=== PATIENT | male | born 1945 | race Native Hawaiian/Other Pacific Islander ===

== ENCOUNTER 2020-06-27 08:51 | Outpatient (CLI) | payer OTHER, MEDICARE ==
[~2020-06-27] VITALS: Ht 167.6 cm; Wt 103.9 kg
[2020-06-27 12:44] LABS: PLATELET COUNT 240 K/uL (142-355)
[2020-06-27 12:53] LABS: POTASSIUM 3.9 mmol/L (3.6-5.2)
== END 2020-06-27 19:30 | disposition home or self-care (01) ==
LOC: DIABINF 08:51
PROVIDERS: ATTEND Internal Medicine Endocrinology, Diabetes & Metabolism
DX: E11.65 Type 2 diabetes mellitus with hyperglycemia (principal)
CPT/HCPCS: 80053; 82948; 83036; 85027; 96365; 96366; 96521; J1718; J1815

== ENCOUNTER 2020-07-17 09:34 | Outpatient (CLI) | payer OTHER, MEDICARE ==
[~2020-07-17] VITALS: Ht 167.6 cm; Wt 103.9 kg
== END 2020-07-17 22:11 | disposition home or self-care (01) ==
LOC: DIABINF 09:34
PROVIDERS: ATTEND Internal Medicine Endocrinology, Diabetes & Metabolism
DX: E11.65 Type 2 diabetes mellitus with hyperglycemia (principal)
CPT/HCPCS: 82948; 96365; 96366; 96521; J1718; J1815